=== PATIENT | female | born 1960 | race Caucasian/White ===

== ENCOUNTER 2018-05-10 07:50 | Emergency (ER) ==
[2018-05-10 08:04] VITALS: BP 158/98; TEMP 97.1; BMI 45.1
--- NOTE | 2018-05-10 08:42 | DI ---
EXAM: Right humerus, two views HISTORY: Fall, injury COMPARISON: None. FINDINGS: There is an acute fracture involving the head of the right humerus. There is a crescentri c 3.4 x 1.0 cm fracture fragment seen adjacent to the lateral cortex of the right humeral head. Ther e is no dislocation of the right humeral head. The scapula appears intact. Mild degenerative change s of the right AC joint seen. Impression There is an acute fracture of the periphery or lateral aspect of the right humeral head without dislo cation of the right humeral head. There is a laterally displaced crescentric 3.4 x 1.0 cm fracture f ragment Transscapular view also shows minimal cortical irregularity medial aspect of the humeral head that ma y be due to a nondisplaced fracture Injury to the rotator cuff not excluded
[2018-05-10] MEDS: TYLENOL PO STA (08:54)
--- NOTE | 2018-05-10 08:54 | DI ---
EXAM: Right elbow, three views HISTORY: Fall COMPARISON: None. FINDINGS: Three views obtained. Standard AP view of the elbow not included The alignment is normal. Joint spaces appear normal. No fracture is identified. IMPRESSION: No fracture or dislocation is identified.
[2018-05-10] MEDS: NORCO 5-325 PO STA (08:58)
--- NOTE | 2018-05-10 09:00 | ED.PDOC ---
General ED Provider: Dr. CATHLEEN RIVERS-ER Chief Complaint: Extremity Pain/Injury Stated Complaint: i fell Time Seen by Physician: 08:00 Mode of Arrival: Walk-In Information Source: Patient Exam Limitations: No limitations Primary Care Provider: EVA BROWN Nursing and Triage Documentation Reviewed and Agree: Yes Reviewed sepsis parameters & appropriate labs ordered?: Yes System Inflammatory Response Syndrome: Not Applicable Sepsis Protocol: For patient's 13 years and over: Temp is 96.8 and below OR 101 and greater Pulse >90 BPM Resp >20/minute Acutely Altered Mental Status Are patient's symptoms suggestive of a new infection, such as: -Pneumonia -Skin, Soft Tissue -Endocarditis -UTI -Bone, Joint Infection -Implantable Device -Acute Abdominal Infection -Wound Infection -Meningitis -Blood Stream Catheter Infection -Unknown Musculoskeletal Complaint Exam - Upper Extremity Complaint/Exam Location of Pain: Reports: Right, Elbow, Forearm Mechanism of Injury: Reports: Trauma Symptoms Are: Still present Timing: Constant Initial Severity: Mild Current Severity: Moderate Location: Reports: Discrete Character: Reports: Dull, Aching Aggravating: Reports: Movement, Lifting, Flexion, Extension Alleviating: Reports: None Non-Orthopedic Risk Factors: Reports: None DVT Risk Factors: Reports: None Septic Arthritis Risk Factors: Reports: None Related Surgical History: Reports: None Upper Extremity Findings: Present: Tenderness, Limited range of motion NV Bundle Intact Distal to Injury: Yes Compartment Syndrome Risk Factors: Present: Pain Differential Diagnoses: Contusion, Closed Fracure Review of Systems - Review Of Systems Constitutional: Reports: No symptoms Eyes: Reports: No symptoms Ears, Nose, Mouth, Throat: Reports: No symptoms Respiratory: Reports: No symptoms Cardiac: Reports: No symptoms GI: Reports: No symptoms : Reports: No symptoms Musculoskeletal: Reports: Muscle pain Skin: Reports: No symptoms Neurological: Reports: No symptoms Endocrine: Reports: No symptoms Hematologic/Lymphatic: Reports: No symptoms All Other Systems: Reviewed and Negative Past Medical History - Past Medical History Previously Healthy: No Endocrine: Reports: Unknown Cardiovascular: Reports: Unknown Respiratory: Reports: Unknown Hematological: Reports: Unknown Gastrointestinal: Reports: Unknown Genitourinary: Reports: Unknown Neuro/Psych: Reports: Unknown Musculoskeletal: Reports: Unknown Cancer: Reports: Unknown Last Menstrual Period: na - Surgical History General Surgical History: Reports: Unknown - Family History Family History: Reports: Unknown - Social History Smoking Status: Former smoker Hx Substance Use: No Alcohol Screening: Occasionally - Immunizations Tetanus Shot up to Date: No Physical Exam - Physical Exam Appearance: Well-appearing, No pain distress, Well-nourished Pain Distress: Moderate Eyes: SUSAN, EOMI, Conjunctiva clear ENT: Ears normal, Nose normal, Oropharynx normal Neck: Supple Respiratory: Airway patent, Breath sounds clear, Breath sounds equal, Respirations nonlabored Cardiovascular: RRR, Pulses normal, No rub, No murmur GI/: Soft Musculoskeletal: Limited ROM Skin: Warm, Dry, Normal color Neurological: Sensation intact, Motor intact, Reflexes intact, Cranial nerves intact, Alert, Oriented Psychiatric: Affect appropriate, Mood appropriate Interpretation - Radiology Interpretation Radiology Interpretation By: Radiologist Radiology Results: Positive Exam Interpreted: Other (fx humerus head) Procedures - Splinting Location: right shoulder Pre-Made Type: shoulder immobilizer Splint: as above--applied by nursing Pre-Proc Neuro Vasc Exam: Normal Post-Proc Neuro Vasc Exam: Normal Critical Care Note - Critical Care Note Total Time (mins): 0 Course - Course Orders, Labs, Meds: Orders Category Date Time Status Shoulder immobilizer [ED SPLINT APPLICATION] .ONCE EMERGENCY 05/10/18 08:45 Active Hydrocodone Bit/Acetaminophen [[place] 5-325] MEDS 05/10/18 08:53 Discontinued 1 tab PO ONCE STA ELBOW, RIGHT MIN 3 VIEWS Stat RADS 05/10/18 08:06 Completed HUMERUS, RIGHT 2 VIEWS Stat RADS 05/10/18 08:06 Completed Medications Discontinued Medications Generic Name Dose Route Start Last Admin Trade Name Freq PRN Reason Stop Dose Admin Hydrocodone Bitart/Acetaminophen 1 tab 05/10/18 08:53 [place] 5-325 PO 05/10/18 08:54 ONCE STA Vital Signs: Temp Pulse Resp BP Pulse Ox 05/10/18 07:51 97.1 F L 86 16 158/98 H 96 Departure - Departure Time of Disposition: 09:01 Disposition: HOME SELF-CARE Discharge Problem: Humerus head fracture Qualifiers: Encounter type: initial encounter Fracture type: closed Laterality: right Qualified Code(s): S42.291A - Other displaced fracture of upper end of right humerus, initial encounter for closed fracture Instructions: Proximal Humerus Fracture (ED) Condition: Good Pt referred to PMD for follow-up: No IPMP verified?: No Additional Instructions: stay in splint---norco 5mg 1-2 tabs q 6hrs prn pain #20--[facility] Allergies/Adverse Reactions: Allergies No Known Allergies Allergy (Unverified 05/10/18 08:01) Disposition Discussed With: Patient
== END 2018-05-10 09:13 | disposition home or self-care (01) ==
LOC: ED 07:50
DX: S42.291A Other displaced fracture of upper end of right humerus, initial encounter for closed fracture (principal); W19.XXXA Unspecified fall, initial encounter
CPT/HCPCS: 99283